=== PATIENT | male | born 1955 | race Caucasian/White ===

== ENCOUNTER 2025-01-27 20:42 | Observation (INO) | payer MEDICARE, SELFPAY ==
[2025-01-27] VITALS (21 sets, daily range): BP systolic 142–218; BP diastolic 78–118; PULSE 60–77; RESP 12–23; TEMP 36.8; O2SAT 93–98; BMI 28.8
--- NOTE | 2025-01-27 20:56 | DI.RAD.S_ITS ---
PROCEDURE: XR CHEST 1V INDICATIONS: chest pain TECHNIQUE: One view of the chest was acquired. COMPARISON: None. FINDINGS: Surgical changes and devices: None. Lungs and pleura: Lungs are clear. No pleural effusions or pneumothorax. Mediastinum: Mediastinal contours appear normal. Heart size is normal. Bones and chest wall: No suspicious bony lesions. Overlying soft tissues appear unremarkable. IMPRESSION: No acute cardiopulmonary abnormality is seen. Approved by: Mari Huffman M.D.,Ph.D. on 01/27/2025 at 21:24
--- NOTE | 2025-01-27 20:56 | EKG_ITS ---
[address] [address] Test Date: 2025-01-27 Pat Name: Jas Hamilton Department: Room: Gender: Male Voltage Inspector: HENRY : 1955 Requested By: Order Number: [id number] Reading MD: Dandy Patiño MD Measurements Intervals Lopez Rate: 73 P: 64 IL: 176 QRS: -44 QRSD: 120 T: 47 QT: 394 QTc: 434 Interpretive Statements Normal sinus rhythm Possible Left atrial enlargement Left axis deviation Cannot rule out Anterior infarct , age undetermined Electronically Signed On 01-29-2025 15:00:25 PDT by Dandy Patiño MD
[2025-01-27] MEDS: ASPIRIN 81 MG CHEW TAB 324 MG PO (21:13)
[2025-01-27 21:24] LABS: Add Manual Diff / Slide Review NO; Basophils Absolute Auto 0 /uL (0-100); Basophils Percent Auto 0.7 % (0-2); Eosinophils Absolute Auto 200 /uL (0-450); Eosinophils Percent Auto 3.3 % (2-4); Hematocrit 41.4 % (41-53); Hemoglobin 14.5 g/dL (13.5-17.5); Lymphocytes Absolute Auto 2400 /uL (1100-4500); Lymphocytes Percent Auto 36.5 % (25-40); Mean Corpuscular HGB Conc 35.1 % (30-36); Mean Corpuscular Hemoglobin 32.6 PG (26-34); Monocytes Absolute Auto 500 /uL (0-900); Monocytes Percent Auto 8.1 % (3-14); Neutrophils Absolute Auto 3400 /uL (1500-7000); Neutrophils Percent Auto 51.4 % (50-75); Platelet Count 214 X10^3/uL (150-400); Red Blood Cell Count 4.45 X10^6/uL (4.5-5.9); Red Cell Distribution Width 12.6 % (11.6-14.8); White Blood Cell Count 6.6 X10^3/uL (4.5-11.0)
[2025-01-27 21:35] LABS: Prothrombin Time 11.1 SECONDS (9.4-12.5)
[2025-01-27 21:38] LABS: PTT Partial Thromboplastin Tim 31 SECONDS (25.1-36.5)
[2025-01-27 21:40] LABS: Alanine Aminotransferase 51 IU/L (<50); Albumin 4.3 g/dL (3.5-5.0); Albumin Globulin Ratio 1.7 (1.0-2.8); Alkaline Phosphatase 87 U/L (38-126); Aspartate Aminotransferase 46 IU/L (17-59); BUN Creatinine Ratio 20.7 (6-22); Bilirubin Total 0.4 mg/dL (0.2-1.3); Blood Urea Nitrogen 17 mg/dL (9-20); Calcium 9.4 mg/dL (8.4-10.2); Carbon Dioxide 22 mmol/L (22-32); Chloride 109 mmol/L (98-107); Creatine Kinase 64 U/L (55-170); Estimated Glomerular Filt Rate > 60 mL/min (>60); Globulin 2.5 g/dL (1.7-4.1); Glucose 112 mg/dL (80-110); HEMOLYSIS 36 (0-50); Lipase 135 U/L (23-300); Magnesium 2.2 mg/dL (1.6-2.3); Potassium 4.3 mmol/L (3.4-5.1); Sodium 139 mmol/L (137-145); Total Protein 6.8 g/dL (6.3-8.2)
[2025-01-27 21:52] LABS: NT-proBNP (BNP-Adult 18+) 60 pg/mL (<125); Troponin I < 0.012 ng/mL (0.01-0.034)
--- NOTE | 2025-01-27 22:37 | ED.CHESTPAIN ---
HPI - Chest Pain General Chief Complaint: Chest Pain Stated Complaint: High BP 193/108 tightness in chest Time Seen by Provider: 01/27/25 21:11 Source: patient and family Mode of arrival: Ambulatory Limitations: no limitations History of Present Illness HPI narrative: This is a 69-year-old male with a history of hypertension presenting with chest tightness. Reports that the onset occurred while he was walking. At its worst it was 6 in 10 on a severity, when seen in his foreign 10 on a severity. Accompanied by some shortness of breath no nausea or diaphoresis. He has not had similar symptoms in the past. Patient is from [place], he is out here on vacation. He has had no previous cardiac testing. Has a history of hypertension that he takes lisinopril for. Apparently does have elevated cholesterol but not being treated for it and reportedly it is mild no history of diabetes or smoking he does have a family history. Patient does not take medications for erectile dysfunction. Related Data Allergies Allergy/AdvReac Type Severity Reaction Status Date / Time No Known Drug Allergies Allergy Verified 01/27/25 23:33 Patient History Social History Smoking Status: Never smoker Smoking Status: Never smoker Alcohol type: beer Exam Initial Vital Signs Initial Vital Signs: Vital Signs Temperature 98.2 F 01/27/25 20:45 Pulse Rate 76 01/27/25 20:45 Respiratory Rate 18 01/27/25 20:45 Blood Pressure 218/118 H 01/27/25 20:45 Pulse Oximetry 95 01/27/25 20:45 Oxygen Delivery Method Room Air 01/27/25 20:45 Course Orders Ordered: ED Orders 01/27/25 20:56 XR chest 1V Stat EKG-12 Lead Stat 01/27/25 21:00 Complete Blood Count AUTO DIFF Stat Comprehensive Metabolic Panel Stat Lipase Stat Magnesium Stat NT-proBNP (BNP-Adult 18+) Stat PTT Partial Thromboplastin Narendra Stat Prothrombin Time INR Stat Troponin & CK Cardiac Panel Stat 01/28/25 00:20 Trop I [Troponin I] Stat 01/29/25 22:00 Trop I [Troponin I] Stat Acetaminophen (Acetaminophen 325 Mg Tablet) 650 mg PO Q4H PRN PRN Reason: Fever/Mild Pain (1-3) Last Admin: 01/28/25 00:23 Dose: 650 mg Documented By: LEENA Nitroglycerin (Nitroglycerin 0.4 Mg Sl Tab) 0.4 mg SL [id number] PRN PRN Reason: Chest Pain Last Admin: 01/27/25 23:34 Dose: 0.4 mg Documented By: Admin: 01/27/25 23:15 Dose: 0.4 mg Documented By: LEENA Discontinued Medications Aspirin (Aspirin 81 Mg Chew Tab) 324 mg PO NOW ONE Stop: 01/27/25 20:57 Last Admin: 01/27/25 21:13 Dose: 324 mg Documented By: Nitroglycerin (Nitroglycerin Oint 1 Inch/Gm Oint...G.) 0.5 inch TOP NOW ONE Stop: 01/28/25 00:13 Last Admin: 01/28/25 00:25 Dose: 0.5 inch Documented By: LEENA Reevaluation(s) Reevaluation #1: Patient reported that his chest pain resolved after 2 nitroglycerin. Heart score is 4. Discussed admission patient is agreement. Consultations Consultation #1: Discussed with hospitalist at [address] Johnson accepts admission Vital Signs Vital signs: Vital Signs - 8 hr 01/27/25 20:45 01/27/25 20:55 01/27/25 21:09 Temperature 98.2 F Pulse Rate 76 72 76 Respiratory Rate 18 18 Blood Pressure 218/118 H 193/103 H Pulse Oximetry 95 96 95 Oxygen Delivery Method Room Air Room Air 01/27/25 21:10 01/27/25 21:10 01/27/25 21:20 Temperature Pulse Rate 72 68 Respiratory Rate 20 Blood Pressure 193/113 H Pulse Oximetry 95 95 Oxygen Delivery Method 01/27/25 21:20 01/27/25 21:30 01/27/25 21:30 Temperature Pulse Rate 71 Respiratory Rate 18 Blood Pressure 166/98 H 156/92 H Pulse Oximetry 94 Oxygen Delivery Method 01/27/25 21:40 01/27/25 21:40 01/27/25 21:50 Temperature Pulse Rate 68 69 Respiratory Rate 18 23 Blood Pressure 151/79 H Pulse Oximetry 95 95 Oxygen Delivery Method 01/27/25 21:50 01/27/25 22:00 01/27/25 22:00 Temperature Pulse Rate 74 Respiratory Rate 21 Blood Pressure 160/90 H 202/95 H Pulse Oximetry 95 Oxygen Delivery Method 01/27/25 22:10 01/27/25 22:10 01/27/25 22:21 Temperature Pulse Rate 72 68 Respiratory Rate 20 18 Blood Pressure 181/101 H Pulse Oximetry 95 94 Oxygen Delivery Method 01/27/25 22:21 01/27/25 22:30 01/27/25 22:30 Temperature Pulse Rate 68 Respiratory Rate 16 Blood Pressure 171/84 H 159/78 H Pulse Oximetry 94 Oxygen Delivery Method 01/27/25 22:40 01/27/25 22:40 01/27/25 22:50 Temperature Pulse Rate 65 77 Respiratory Rate 16 17 Blood Pressure 170/84 H Pulse Oximetry 97 95 Oxygen Delivery Method 01/27/25 22:50 01/27/25 23:00 01/27/25 23:00 Temperature Pulse Rate 63 Respiratory Rate 12 Blood Pressure 167/90 H 162/85 H Pulse Oximetry 95 Oxygen Delivery Method Room Air 01/27/25 23:06 01/27/25 23:06 01/27/25 23:15 Temperature Pulse Rate 64 63 Respiratory Rate 23 Blood Pressure 165/92 H 162/95 H Pulse Oximetry 98 Oxygen Delivery Method 01/27/25 23:15 01/27/25 23:15 01/27/25 23:30 Temperature Pulse Rate 64 64 Respiratory Rate 22 20 Blood Pressure 162/95 H Pulse Oximetry 96 95 Oxygen Delivery Method Room Air 01/27/25 23:30 01/27/25 23:34 01/27/25 23:45 Temperature Pulse Rate 62 64 Respiratory Rate 21 Blood Pressure 144/87 H 144/87 H Pulse Oximetry 93 Oxygen Delivery Method 01/27/25 23:45 01/27/25 23:50 01/27/25 23:50 Temperature Pulse Rate 60 Respiratory Rate 20 Blood Pressure 142/80 H 142/83 H Pulse Oximetry 96 Oxygen Delivery Method 01/28/25 00:00 01/28/25 00:00 01/28/25 00:10 Temperature 98 F Pulse Rate 58 L Respiratory Rate 14 Blood Pressure 148/88 H 180/98 H Pulse Oximetry 97 Oxygen Delivery Method 01/28/25 00:10 01/28/25 00:21 01/28/25 00:21 Temperature Pulse Rate 62 59 L Respiratory Rate 23 16 Blood Pressure 171/91 H Pulse Oximetry 97 96 Oxygen Delivery Method 01/28/25 00:25 01/28/25 00:30 01/28/25 00:30 Temperature Pulse Rate 60 63 Respiratory Rate 24 Blood Pressure 171/91 H 184/103 H Pulse Oximetry 97 Oxygen Delivery Method 01/28/25 00:40 01/28/25 00:40 01/28/25 00:50 Temperature Pulse Rate 59 L 76 Respiratory Rate 18 38 H Blood Pressure 176/100 H Pulse Oximetry 96 95 Oxygen Delivery Method 01/28/25 00:50 01/28/25 01:00 01/28/25 01:00 Temperature Pulse Rate 64 Respiratory Rate 21 Blood Pressure 194/114 H 166/101 H Pulse Oximetry 96 Oxygen Delivery Method 01/28/25 01:10 01/28/25 01:10 01/28/25 01:20 Temperature Pulse Rate 63 Respiratory Rate 16 Blood Pressure 180/91 H 165/99 H Pulse Oximetry 95 Oxygen Delivery Method 01/28/25 01:20 01/28/25 01:30 01/28/25 01:30 Temperature Pulse Rate 64 63 Respiratory Rate 16 15 Blood Pressure 197/104 H Pulse Oximetry 94 97 Oxygen Delivery Method Room Air MDM - Chest Pain Lab Data Lab results narrative: CBC with diff and CMP are unremarkable 1st troponin is normal 01/27/25 21:00 01/27/25 21:00 Labs: Lab Results 01/27/25 01/27/25 Range/Units 21:00 23:12 WBC 6.6 (4.5-11.0) X10^3/uL RBC 4.45 L (4.5-5.9) X10^6/uL Hgb 14.5 (13.5-17.5) g/dL Hct 41.4 (41-53) % MCV 93.0 (80-100) fL MCH 32.6 (26-34) PG MCHC 35.1 (30-36) % RDW 12.6 (11.6-14.8) % Plt Count 214 (150-400) X10^3/uL Neut % (Auto) 51.4 (50-75) % Lymph % (Auto) 36.5 (25-40) % [place] % (Auto) 8.1 (3-14) % Eos % (Auto) 3.3 (2-4) % Baso % (Auto) 0.7 (0-2) % Neut # (Auto) 3400 (5656-3748) /uL Lymph # (Auto) 2400 (0948-7884) /uL [place] # (Auto) 500 (0-900) /uL Eos # (Auto) 200 (0-450) /uL Baso # (Auto) 0 (0-100) /uL PT 11.1 (9.4-12.5) SECONDS INR 1.0 (0.9-1.3) APTT 31 (25.1-36.5) SECONDS Sodium 139 (137-145) mmol/L Potassium 4.3 (3.4-5.1) mmol/L Chloride 109 H (98-107) mmol/L Carbon Dioxide 22 (22-32) mmol/L BUN 17 (9-20) mg/dL Creatinine 0.82 (0.66-1.25) mg/dL Estimated GFR > 60 (>60) mL/min BUN/Creatinine Ratio 20.7 (6-22) Glucose 112 H (80-110) mg/dL Calcium 9.4 (8.4-10.2) mg/dL Magnesium 2.2 (1.6-2.3) mg/dL Total Bilirubin 0.4 (0.2-1.3) mg/dL AST 46 (17-59) IU/L ALT 51 H (<50) IU/L Alkaline Phosphatase 87 (38-126) U/L Total Creatine Kinase 64 (55-170) U/L Troponin I < 0.012 < 0.012 (0.01-0.034) ng/mL NT-Pro-B Natriuret Pep 60 (<125) pg/mL Total Protein 6.8 (6.3-8.2) g/dL Albumin 4.3 (3.5-5.0) g/dL Globulin 2.5 (1.7-4.1) g/dL Albumin/Globulin Ratio 1.7 (1.0-2.8) Lipase 135 (23-300) U/L Imaging Data Chest x-ray: My Impression: independently reviewed chest x-ray, no acute findings ECG Data Interpretation: ECG shows normal sinus rhythm at [address] segment elevation possible old anterior infarct no previous EKG for comparison MDM Narrative Medical decision making narrative: 69-year-old male with hypertension family history and possibly elevated cholesterol presenting with exertional chest pain that is responsive to nitroglycerin. Troponins are normal x2, no ischemic EKG changes does not appear to be having an acute ST-elevation MO or non ST elevation MO. I am concerned that this may be new onset symptomatic coronary disease and I think he is appropriate for admission. I considered but do not suspect pulmonary embolism he is not tachycardic or hypoxic. No evidence of pneumonia. Patient will be admitted to the hospitalist service.
[2025-01-27] MEDS: NITROGLYCERIN 0.4 MG SL TAB SL ×2 (23:15→23:34)
[2025-01-28] VITALS (19 sets, daily range): BP systolic 130–211; BP diastolic 77–116; PULSE 58–79; RESP 13–38; TEMP 36.1–36.6; O2SAT 94–97; BMI 28.8
[2025-01-28] MEDS: ACETAMINOPHEN 325 MG TABLET 650 MG PO ×2 (00:23→11:05)
[2025-01-28] MEDS: NITROGLYCERIN OINT 1 INCH/GM OINT...G. 0.5 INCH TOP (00:25)
[2025-01-28 00:47] LABS: Troponin I < 0.012 ng/mL (0.01-0.034)
--- NOTE | 2025-01-28 01:57 | DI.ECHO.S_ITS ---
[facility] : : [address] : : [place] : : [id number] : : Phone: [phone] Echocardiogram Report + :Name: LD WOLFE Study Date: 01/28/2025 Height: 74 in : :[facility] ReadingLocation: Weight: 224 lb : : Gender: Male BSA: 2.3 m2 : :: 1955 Age: 69 yrs BP: 193/108 mmHg: :Reason For Study: Chest Tightness : :Ordering Physician: DILLON : :ADEBAYO MCKEON Performed By: Jackie Berrios : :Referring: ADEBAYO MATTHEWS : + Interpretation Summary There is mild concentric left ventricular hypertrophy. The ejection fraction is estimated to be 55-60%. Diastolic function could not be accurately assessed due to contradictory data. The left atrium is moderately dilated. The right ventricle is normal in size and function. There is mild mitral regurgitation. Pulmonary artery pressures cannot be estimated because of the lack of a measurable TR jet velocity but the IVC suggests a CVP of around 3 mmHg. Procedure: A two-dimensional transthoracic echocardiogram with color flow and Doppler was performed. The study quality was technically adequate. There is no prior echocardiogram noted for this patient. The heart rate ranged between 66-76 bpm during the study. Left Ventricle: The left ventricle is normal in size. There is mild concentric left ventricular hypertrophy. There is mild proximal septal thickening noted. The ejection fraction is estimated to be 55-60%. Diastolic function could not be accurately assessed due to contradictory data. Right Ventricle: The right ventricle is normal in size and function. Atria: The left atrium is moderately dilated. Right atrial size is normal. The interatrial septum grossly appears intact with no obvious evidence for an atrial septal defect. Mitral Valve: The mitral valve leaflets appear borderline thickened, but open well. There is mild mitral regurgitation. Aortic Valve: The aortic valve is trileaflet. The aortic valve opens well. The aortic valve is moderately calcified. The aortic valve area is 2.1 centimeters squared by planimetry. The calculated aortic valve area is 2.3 cm2. There is no hemodynamically significant valvular aortic stenosis. No aortic regurgitation is present. Tricuspid Valve: The tricuspid valve leaflets are thin and pliable. There is a trace or physiologic amount of tricuspid regurgitation. Pulmonary artery pressures cannot be estimated because of the lack of a measurable TR jet velocity but the IVC suggests a CVP of around 3 mmHg. Pulmonic Valve: The pulmonic valve is not well seen, but is grossly normal. There is a trace or physiologic amount of pulmonic regurgitation. Great Vessels: The aortic root is normal size. The ascending aorta is normal in size. The aortic arch is normal in size. The IVC is of normal diameter and collapses greater than 50% with a sniff. This suggests a low right atrial pressure of 3 mm Hg. Pericardium/ Pleura There is no pericardial effusion. There is no pleural effusion. MMode/2D Measurements & Calculations LVIDd: 5.2 cm LVOT diam: 2.3 cm LVIDs: 3.0 cm Ao root diam: 3.5 cm FS: 42.3 % asc Aorta Diam: 3.7 cm EPSS: 0.67 cm Ao Arch Diam (Prox Trans): 2.8 cm IVSd: 1.2 cm LVPWd: 1.2 cm LV bray. diameter/BSA (cm/m^2): 2.3 LV sys. diameter/BSA (cm/m^2): 1.3 LA A2 area: 27.7 cm2 RA long axis: 5.8 cm LA A4 area: 23.8 cm2 RA area: 18.0 cm2 LA length (vol): 5.8 cm RA vol: 47.4 ml LA vol: 96.3 ml RA : 20.8 ml/m2 LA vol index: 42.2 ml/m2 IVC diam: 1.4 cm RVD1 (basal): 3.3 cm TAPSE: 2.6 cm Doppler Measurements & Calculations Ao V2 max: 174.5 cm/sec LVOT Max Omid: 96.3 cm/sec Ao V2 mean: 120.7 cm/sec LV V1 max P.7 mmHg Ao max P.2 mmHg LV V1 VTI: 21.5 cm Ao mean P.6 mmHg RHONDA(I,D): 2.4 cm2 Ao V2 VTI: 38.9 cm RHONDA(V,D): 2.3 cm2 sev ratio: 0.55 RHONDA indexed to BSA (cm^2/m^2): 1.0 MV E max omid: 78.2 cm/sec TR max omid: 209.2 cm/sec MV A max omid: 90.9 cm/sec TR max P.5 mmHg MV E/A: 0.86 PA V2 max: 81.0 cm/sec Med Peak E' Omid: 6.8 cm/sec PA V2 mean: 57.0 cm/sec E/E' med: 11.5 PA mean P.5 mmHg Lat Peak E' Omid: 8.2 cm/sec PA pr(Accel): 8.4 mmHg E/E' lat: 9.6 E/e' average: 10.5 MV dec time: 0.23 sec Pulm A Revs Omid: 32.3 cm/sec SV(LVOT): 91.5 ml Reading Physician:01:18 PM
--- NOTE | 2025-01-28 01:58 | P.HP_ITS ---
History of Present Illness History of Present Illness Date Patient Seen: 01/28/25 Chief complaint: High BP 193/108 tightness in chest Narrative: 69 y/o with PMH of HTN and HLD, came to ER after he experienced substernal, non- radiating chest pain earlier today while walking. Intensity 6/10. Relieved by rest and NTG. Accompanied by shortness of breath. Without nausea, vomiting, sweating, dizzines. He never had chest pain before. Initial ED workup w/o evidence of ACS, with two negative troponins and non- ischemic EKG. Notably hypertensive on presentation with BP > 200/100. CMP and CBC unremarkable.Clear CXR. Initial treatment with NTG paste and ASA.At the time of admission BP 180/100. Placed in observation for chest pain and hypertensive urgency. [facility] Social History household members: spouse Smoking Status: Never smoker Meds Home Medications and Allergies Home Medications Medication Instructions Recorded Confirmed Type lisinopril 10 mg tablet 10 mg PO BEDTIME 01/28/25 01/28/25 History Allergies Allergy/AdvReac Type Severity Reaction Status Date / Time No Known Drug Allergies Allergy Verified 01/27/25 23:33 Review of Systems Review of Systems Narrative: General - negative CVS - chest substernal tightness, squeezing feeling RS - dyspnea GI - negative UG - wakes up once on average, at night, to urinate Neuro - w/o numbness or weakness Exam Vital Signs (past 8 hours): - 01/27/25 20:45 01/27/25 20:55 01/27/25 21:09 Temperature 98.2 F Pulse Rate 76 72 76 Respiratory Rate 18 18 Blood Pressure 218/118 H 193/103 H Pulse Oximetry 95 96 95 Oxygen Delivery Method Room Air Room Air 01/27/25 21:10 01/27/25 21:10 01/27/25 21:20 Temperature Pulse Rate 72 68 Respiratory Rate 20 Blood Pressure 193/113 H Pulse Oximetry 95 95 Oxygen Delivery Method 01/27/25 21:20 01/27/25 21:30 01/27/25 21:30 Temperature Pulse Rate 71 Respiratory Rate 18 Blood Pressure 166/98 H 156/92 H Pulse Oximetry 94 Oxygen Delivery Method 01/27/25 21:40 01/27/25 21:40 01/27/25 21:50 Temperature Pulse Rate 68 69 Respiratory Rate 18 23 Blood Pressure 151/79 H Pulse Oximetry 95 95 Oxygen Delivery Method 01/27/25 21:50 01/27/25 22:00 01/27/25 22:00 Temperature Pulse Rate 74 Respiratory Rate 21 Blood Pressure 160/90 H 202/95 H Pulse Oximetry 95 Oxygen Delivery Method 01/27/25 22:10 01/27/25 22:10 01/27/25 22:21 Temperature Pulse Rate 72 68 Respiratory Rate 20 18 Blood Pressure 181/101 H Pulse Oximetry 95 94 Oxygen Delivery Method 01/27/25 22:21 01/27/25 22:30 01/27/25 22:30 Temperature Pulse Rate 68 Respiratory Rate 16 Blood Pressure 171/84 H 159/78 H Pulse Oximetry 94 Oxygen Delivery Method 01/27/25 22:40 01/27/25 22:40 01/27/25 22:50 Temperature Pulse Rate 65 77 Respiratory Rate 16 17 Blood Pressure 170/84 H Pulse Oximetry 97 95 Oxygen Delivery Method 01/27/25 22:50 01/27/25 23:00 01/27/25 23:00 Temperature Pulse Rate 63 Respiratory Rate 12 Blood Pressure 167/90 H 162/85 H Pulse Oximetry 95 Oxygen Delivery Method Room Air 01/27/25 23:06 01/27/25 23:06 01/27/25 23:15 Temperature Pulse Rate 64 63 Respiratory Rate 23 Blood Pressure 165/92 H 162/95 H Pulse Oximetry 98 Oxygen Delivery Method 01/27/25 23:15 01/27/25 23:15 01/27/25 23:30 Temperature Pulse Rate 64 64 Respiratory Rate 22 20 Blood Pressure 162/95 H Pulse Oximetry 96 95 Oxygen Delivery Method Room Air 01/27/25 23:30 01/27/25 23:34 01/27/25 23:45 Temperature Pulse Rate 62 64 Respiratory Rate 21 Blood Pressure 144/87 H 144/87 H Pulse Oximetry 93 Oxygen Delivery Method 01/27/25 23:45 01/27/25 23:50 01/27/25 23:50 Temperature Pulse Rate 60 Respiratory Rate 20 Blood Pressure 142/80 H 142/83 H Pulse Oximetry 96 Oxygen Delivery Method 01/28/25 00:00 01/28/25 00:00 01/28/25 00:10 Temperature 98 F Pulse Rate 58 L Respiratory Rate 14 Blood Pressure 148/88 H 180/98 H Pulse Oximetry 97 Oxygen Delivery Method 01/28/25 00:10 01/28/25 00:21 01/28/25 00:21 Temperature Pulse Rate 62 59 L Respiratory Rate 23 16 Blood Pressure 171/91 H Pulse Oximetry 97 96 Oxygen Delivery Method 01/28/25 00:25 01/28/25 00:30 01/28/25 00:30 Temperature Pulse Rate 60 63 Respiratory Rate 24 Blood Pressure 171/91 H 184/103 H Pulse Oximetry 97 Oxygen Delivery Method 01/28/25 00:40 01/28/25 00:40 01/28/25 00:50 Temperature Pulse Rate 59 L 76 Respiratory Rate 18 38 H Blood Pressure 176/100 H Pulse Oximetry 96 95 Oxygen Delivery Method 01/28/25 00:50 01/28/25 01:00 01/28/25 01:00 Temperature Pulse Rate 64 Respiratory Rate 21 Blood Pressure 194/114 H 166/101 H Pulse Oximetry 96 Oxygen Delivery Method 01/28/25 01:10 01/28/25 01:10 01/28/25 01:20 Temperature Pulse Rate 63 Respiratory Rate 16 Blood Pressure 180/91 H 165/99 H Pulse Oximetry 95 Oxygen Delivery Method 01/28/25 01:20 01/28/25 01:30 01/28/25 01:30 Temperature Pulse Rate 64 63 Respiratory Rate 16 15 Blood Pressure 197/104 H Pulse Oximetry 94 97 Oxygen Delivery Method Room Air Oxygen Delivery Method Room Air Narrative Exam Narrative: General - in no distress HEENT: normocephalic CVS - RRR RS - CTA GI - not distended Neuro - w/o deficits Objective ECG Impression: NSR 73 Imaging Chest x-ray: My impression: Without infiltrates or cardiomegaly Radiologist's impression: No acute cardiopulmonary abnormality is seen. Labs 01/28/25 04:52 01/28/25 04:52 Labs: Laboratory Results - last 24 hr 01/27/25 01/27/25 21:00 23:12 WBC 6.6 RBC 4.45 L Hgb 14.5 Hct 41.4 MCV 93.0 MCH 32.6 MCHC 35.1 RDW 12.6 Plt Count 214 Neut % (Auto) 51.4 Lymph % (Auto) 36.5 [place] % (Auto) 8.1 Eos % (Auto) 3.3 Baso % (Auto) 0.7 Neut # (Auto) 3400 Lymph # (Auto) 2400 [place] # (Auto) 500 Eos # (Auto) 200 Baso # (Auto) 0 PT 11.1 INR 1.0 APTT 31 Sodium 139 Potassium 4.3 Chloride 109 H Carbon Dioxide 22 BUN 17 Creatinine 0.82 Estimated GFR > 60 BUN/Creatinine Ratio 20.7 Glucose 112 H Calcium 9.4 Magnesium 2.2 Total Bilirubin 0.4 AST 46 ALT 51 H Alkaline Phosphatase 87 Total Creatine Kinase 64 Troponin I < 0.012 < 0.012 NT-Pro-B Natriuret Pep 60 Total Protein 6.8 Albumin 4.3 Globulin 2.5 Albumin/Globulin Ratio 1.7 Lipase 135 Assessment & Plan Assessment and plan (1) Chest pain: Qualifiers: Chest pain type: unspecified Qualified Code(s): R07.9 - Chest pain, unspecified Status: Acute Assessment & Plan narrative: Chest Pain - placed in observation on threat monitoring analyst - echocardiogram, lipids, A1C pending - had ASA - BP control Hypertensive Urgency - added metoprolol scheduled tid for easier titration and prn hydralazine to home Lisinopril - likely cause of chest pain DVT prophylaxis - Lovenox Time-Based Coding :: [TOTAL MINUTES] spent with patient and on the chart (including review of chart, obtaining history, exam, reviewing outside data, placing orders, documenting exam and treatment plan, and counseling patient) on [DATE].
[2025-01-28] MEDS: lisinopriL 10 MG TABLET PO (03:33)
[2025-01-28] MEDS: METOPROLOL IR 25 MG TABLET PO ×2 (03:33→08:42)
--- NOTE | 2025-01-28 04:42 | PC.NURSE ---
Admitted from ED at 03:00. Alert and oriented x 4, pleasant. Denies pain/ chest pain, shortness of breath. BP elevated, meds given as ordered.
[2025-01-28 05:14] LABS: Add Manual Diff / Slide Review NO; Basophils Absolute Auto 0 /uL (0-100); Basophils Percent Auto 0.6 % (0-2); Eosinophils Absolute Auto 200 /uL (0-450); Eosinophils Percent Auto 3.9 % (2-4); Hematocrit 39.2 % (41-53); Hemoglobin 13.5 g/dL (13.5-17.5); Lymphocytes Absolute Auto 2200 /uL (1100-4500); Lymphocytes Percent Auto 38.8 % (25-40); Mean Corpuscular HGB Conc 34.6 % (30-36); Mean Corpuscular Volume 92.5 fL (80-100); Monocytes Absolute Auto 500 /uL (0-900); Monocytes Percent Auto 9.4 % (3-14); Neutrophils Absolute Auto 2600 /uL (1500-7000); Neutrophils Percent Auto 47.3 % (50-75); Platelet Count 194 X10^3/uL (150-400); Red Blood Cell Count 4.23 X10^6/uL (4.5-5.9); Red Cell Distribution Width 12.9 % (11.6-14.8); White Blood Cell Count 5.5 X10^3/uL (4.5-11.0)
[2025-01-28 05:25] LABS: Blood Urea Nitrogen 17 mg/dL (9-20); Calcium 8.9 mg/dL (8.4-10.2); Carbon Dioxide 25 mmol/L (22-32); Chloride 108 mmol/L (98-107); Cholesterol 223 mg/dL (140-199); Estimated Glomerular Filt Rate > 60 mL/min (>60); Glucose 96 mg/dL (80-110); HDL Cholesterol 43 mg/dL (40-60); HEMOLYSIS < 15 (0-50); LDL Cholesterol Calculated 156 mg/dL (<100); Potassium 4.5 mmol/L (3.4-5.1); Sodium 139 mmol/L (137-145); Triglycerides 120 mg/dL (35-150)
[2025-01-28 05:31] LABS: Hemoglobin A1C% w Est Avg Glu 4.6 % (4.0-6.0)
[2025-01-28 05:51] LABS: TSH w/ Reflex to FT4 3.85 uIU/mL (0.47-4.68)
[2025-01-28 08:39] LABS: Troponin I < 0.012 ng/mL (0.01-0.034)
[2025-01-28] MEDS: ENOXAPARIN 40 MG/0.4 ML SYRINGE SUBCUT (08:42)
--- NOTE | 2025-01-28 09:25 | CM.DANOTE ---
Initial DCP Assessment Visit Note Reviewed EMR and team rounds for patient's medical status and updates. Met with patient and his spouse at bedside to introduce self and role. Patient was found to be alert and oriented. Patient was calm and cooperative during our conversation. Patient lives in his own home with his spouse, they are here visiting their Daughter in [place]. Patient and spouse live in [place]. Patient is fully independent with self care and ADLs. Patient does not use and DME. He does not have any caregivers and he is not a caregiver for anybody. Patient's spouse is available to transport him when he can't drive. Plan is to return back to his vacation and eventually back home to [place] after leaving the hospital. Payor: Medicare PCP: Ole Callahan Patient is a 69 year old male who presented to the ER on 01/27/25 chest discomfort, and shortness of breath. His symptoms were responsive to nitroglycerin. Today patient is feeling ok overall. Plan is to get an echocardiogram done and if that imaging is ok thn patient will be able to discharge.. Patient feels motivated to return back to his vacation to [place] after this hospitalization. After vacation patient is planning to return to his home in [place]. No discharge needs anticipated. DCP will continue to monitor for any evolving needs in relation to discharge. Discharge Planning/Care Management CM Discharge Assessment Start: 01/28/25 09:18 Freq: Status: Active Protocol: Document 01/28/25 09:18 MANUEL (Rec: 01/28/25 09:25 JF [id number]) Discharge Planning Assessment Assigned Fertilizer Processing Supervisor Bernard Cardenas RN DPOA/Assigned Designee Name None Advance Directives? No Advance Directives on File No History Provided By Patient,Family Member,Medical Record Expected Length of Stay 2 Has Patient been admitted in last 30 No days? Prior Living Arrangements House Household Members spouse Type of transporation used prior to Relies on Others admit Comment Spouse is currently driving while they are here on vacation. Independent with ADL's Yes Is patient alert and oriented? Yes Comment None Caregiver for Another No Comment None Comment None Comment No needs anticipated. Barriers to Discharge No Discharge Plan Home Transportation Arrangement Patient's spouse will transport. Referrals Initiated None needed Whiteboard Updated in Patient Room with Yes name and ext. # of Fertilizer Processing Supervisor Review Status In Process Please Provide Date Initial DC 01/28/25 Assessment Was Performed
--- NOTE | 2025-01-28 14:14 | P.DS_ITS ---
History of Present Illness History of Present Illness Date Patient Seen: 01/28/25 Time Patient Seen: 07:50 Chief complaint: High BP 193/108 tightness in chest Narrative: 69 y/o with PMH of HTN and HLD, came to ER after he experienced substernal, non- radiating chest pain earlier today while walking. Intensity 6/10. Relieved by rest and NTG. Accompanied by shortness of breath. Without nausea, vomiting, sweating, dizzines. He never had chest pain before. Initial ED workup w/o evidence of ACS, with two negative troponins and non- ischemic EKG. Notably hypertensive on presentation with BP > 200/100. CMP and CBC unremarkable.Clear CXR. Initial treatment with NTG paste and ASA.At the time of admission BP 180/100. Placed in observation for chest pain and hypertensive urgency. Discharge Providers Provider Date of admission: 01/28/25 01:48 Discharge Date: 01/28/25 Discharge provider: Richar Smith MD Summary Hospital Course Discharge Diagnosis: 1. Hypertensitive urgency 2. Chest pain due to 1 3. Hypertension with left ventricular hypertrophy 4. Hyperlipidemia Hospital Course: The patient was admitted and monitored on telemetry. He ruled out for myocardial infarction with normal serial cardiac enzymes. Hypertension was treated medically with metoprolol and nitroglycerine with good response, improving from 218/118 to 130/77 at discharge. The patient is from [place] and was visiting family locally, had eaten salty and fatty foods in the days preceding onset of symptoms. His echocardiogram was notable for mild left ventricular hypertrophy with normal left ventricular function and unremarkable heart valves. He had no further chest pain during the hospitalization. He had only started lisinopril 1 week prior to admission and his lisinopril dose is increased at discharge. His lipids were elevated and statin therapy was advised at discharge, along with nitroglycerine as needed. Outpatient nuclear medicine stress testing for further evaluation. The patient acknowledged understanding, agreement and appreciation of this plan of care, and agreed to call back with any questions or concerns. Status at Discharge Cognitive/behavioral status at discharge: oriented Functional status at discharge: independent ambulation Overall status at discharge: patient is back to baseline Time Spent with Patient Time spent: Greater than 30 minutes Exam Vital Signs (past 8 hours): - 01/28/25 08:00 01/28/25 13:00 Temperature 97.7 F 97.2 F L Pulse Rate 64 62 Respiratory Rate 16 15 Blood Pressure 149/94 H 130/77 Pulse Oximetry 97 96 Oxygen Flow Rate 0 0 Oxygen Delivery Method Room Air Oxygen Flow Rate 0 Narrative Exam Narrative: GENERAL: This is a well-nourished, well-developed patient, in no apparent distress. HEAD: Atraumatic. Normocephalic. No temporal or scalp tenderness. EYES: Pupils equal round and reactive. Extraocular motions intact. No scleral icterus. No injection or drainage. ENT: Mucous membranes pink and moist. NECK: Trachea midline. No JVD, bruits or lymphadenopathy. Supple, nontender, no meningeal signs. CARDIOVASCULAR: Regular rate and rhythm without murmurs, gallops, or rubs. RESPIRATORY: Clear to auscultation. GASTROINTESTINAL: Abdomen soft, non-tender, nondistended. EXTREMITIES: No clubbing, cyanosis, or edema. BACK: Nontender without deformity or crepitance. No flank tenderness. NEUROLOGIC: Alert, oriented, speech fluent, full upper and lower motor strength, no focal deficits evident. DERMATOLOGIC: No rashes or skin lesions. Objective Imaging Chest x-ray: Radiologist's impression: No acute cardiopulmonary abnormality is seen. Echo: Radiologist's impression: There is mild concentric left ventricular hypertrophy. The ejection fraction is estimated to be 55-60%. Diastolic function could not be accurately assessed due to contradictory data. The left atrium is moderately dilated. The right ventricle is normal in size and function. There is mild mitral regurgitation. Pulmonary artery pressures cannot be estimated because of the lack of a measurable TR jet velocity but the IVC suggests a CVP of around 3 mmHg. Labs 01/28/25 04:52 01/28/25 04:52 Labs: Laboratory Results - last 24 hr 01/27/25 01/27/25 01/28/25 21:00 23:12 04:52 WBC 6.6 5.5 RBC 4.45 L 4.23 L Hgb 14.5 13.5 Hct 41.4 39.2 L MCV 93.0 92.5 MCH 32.6 32.0 MCHC 35.1 34.6 RDW 12.6 12.9 Plt Count 214 194 Neut % (Auto) 51.4 47.3 L Lymph % (Auto) 36.[address] [place] % (Auto) 8.1 9.4 Eos % (Auto) 3.3 3.9 Baso % (Auto) 0.7 0.6 Neut # (Auto) 3400 2600 Lymph # (Auto) [address] # (Auto) 500 500 Eos # (Auto) 200 200 Baso # (Auto) 0 0 PT 11.1 INR 1.0 APTT 31 Sodium 139 139 Potassium 4.3 4.5 Chloride 109 H 108 H Carbon Dioxide 22 25 BUN 17 17 Creatinine 0.82 0.85 Estimated GFR > 60 > 60 BUN/Creatinine Ratio 20.7 20.0 Glucose 112 H 96 Hemoglobin A1c 4.6 Calcium 9.4 8.9 Magnesium 2.2 Total Bilirubin 0.4 AST 46 ALT 51 H Alkaline Phosphatase 87 Total Creatine Kinase 64 Troponin I < 0.012 < 0.012 < 0.012 NT-Pro-B Natriuret Pep 60 Total Protein 6.8 Albumin 4.3 Globulin 2.5 Albumin/Globulin Ratio 1.7 Triglycerides 120 Cholesterol 223 H LDL Cholesterol, Calc 156 H HDL Cholesterol 43 Lipase 135 TSH 3.85 PFSH Social History household members: spouse Smoking Status: Never smoker Discharge Plan Discharge Plan Patient Disposition: Home Provider Discharge Comment: Light activity advised; Followup with Dr. Ole Callahan this week upon return home to discuss cardiac stress testing. Discharge orders & Medications Prescriptions: New lisinopril 20 mg tablet 20 mg PO BID Qty: 60 0RF rosuvastatin 20 mg tablet 20 mg PO DAILY Qty: 30 0RF nitroglycerin 0.4 mg tablet, sublingual 0.4 mg sublingual Q5-15M PRN (Reason: chest pain) Qty: 25 0RF Rx Instructions: do not exceed 3 doses per episode Discontinued lisinopril 10 mg tablet 10 mg PO BEDTIME Diet/Activity/Treatments Diet: Low-fat and Low-sodium Visit Report/Discharge Packet Stand Alone Forms: Patient Portal/API, Stroke Signs & Symptoms Discharge Data Attending Provider: Mayco Lopez Admit Date/Time: 01/28/25 01:48 Quality MIPS - Admit I confirm the patient?s Advance Care Plan is present, Code status is documented, Surrogate decision maker is in patient?s record [If Yes, STOP here]: Yes MIPS - Meds 'Current medications' to include all prescriptions, [id number] products, herbals, cannabis/cannabidiol products, and vitamin/mineral/dietary (nutritional) supplements. I have utilized all available resources to obtain, update, or review the patient?s current medications. [If Yes, STOP here]: Yes MIPS - DC The patient has a history of heart transplant or Left Ventricular Assist Device (LVAD). If yes, STOP here.: No The patient has current or prior documentation of left ventricular ejection fraction (LVEF) less than or equal to 40%, or moderate or severely depressed left ventricular systolic function.: No A. The patient was prescribed or already taking an Angiotensin-Converting Enzyme (RAÚL) Inhibitor, or Angiotensin Receptor Saúl (ARB).: Yes B. The patient was prescribed or already taking a beta-saúl. [If Yes to Both A & B, STOP here]: No Patient not prescribed/taking RAÚL or ARB, no reason given.: No Patient not prescribed/taking beta-saúl, no reason given.: No PROFEE Charge Codes Discharge inpatient/observation: 06011
--- NOTE | 2025-01-28 14:39 | CM.MNRNOTE ---
Addendum entered by Perla Nash R.N. 01/28/25 14:43: Pt & escorted by staff via W/C to waiting vehicle in stable status Original Note: Pt denies any c/o at this time. ECHO completed, Tele NSR per ICU staff. Orders for D/C received. Tele & SL D/C intact. Home instructions given w/understanding. Pt to F/U w/ his PCP on arrival home
== END 2025-01-28 14:40 | disposition home or self-care (01) ==
LOC: ED 22:45 → AC 01-28 01:52
PROVIDERS: Internal Medicine; Admitting Provider Internal Medicine; Emergency Provider Emergency Medicine; Referring Provider Emergency Medicine; Visit Provider Internal Medicine
DX: I16.0 Hypertensive urgency (principal); I11.9 Hypertensive heart disease without heart failure; E78.5 Hyperlipidemia, unspecified
CPT/HCPCS: 36415; 71045; 80048; 80053; 80061; 82550; 83036; 83690; 83735; 83880; 84443; 84484; 85025; 85610; 85730; 93005; 93010; 93306; 96372; 99284; G0378; J1650